=== PATIENT | male | born 1945 | race Caucasian/White ===

== ENCOUNTER 2017-10-05 05:56 | Inpatient (IN) | payer MEDICARE, OTHER ==
[2017-10-03 11:44] LABS: BASOPHILS # (AUTO) 0.1 X10'3 (0-0.2); BASOPHILS % (AUTO) 1.1 % (0-1); EOSINOPHILS # (AUTO) 0.3 X10'3 (0-0.9); EOSINOPHILS % (AUTO) 2.8 % (0-6); LYMPHOCYTES # (AUTO) 2.3 X10'3 (1.1-4.8); LYMPHOCYTES % (AUTO) 23.6 % (21-51); MEAN CORPUSCULAR HEMOGLOBIN 29.2 PG (27.0-31.0); MEAN CORPUSCULAR HGB CONC 33.5 % (33.0-36.5); MEAN CORPUSCULAR VOLUME 87.1 FL (78-98); MEAN PLATELET VOLUME 8.7 FL (7.4-10.4); MONOCYTES # (AUTO) 0.7 X10'3 (0-0.9); MONOCYTES % (AUTO) 7.1 % (2-12); NEUTROPHILS # (AUTO) 6.4 X10'3 (1.8-7.7); NEUTROPHILS % (AUTO) 65.4 % (42-75); PRE OP HEMATOCRIT 48.3 % (42.0-52.0); PRE OP HEMOGLOBIN 16.2 g/dL (14.0-17.9); PRE OP PLATELET COUNT 274 X10'3 (140-440); RED BLOOD COUNT 5.55 X10'6 (4.70-6.10); RED CELL DISTRIBUTION WIDTH 13.6 % (11.5-14.5)
[2017-10-03 11:47] LABS: ALBUMIN 3.6 G/DL (3.4-5.0); ALKALINE PHOSPHATASE 79 IU/L (46-116); BLOOD UREA NITROGEN 24 MG/DL (7-18); BUN/CREATININE RATIO 18.6 (5.4-32.0); CALCIUM 8.7 MG/DL (8.5-10.1); CHLORIDE 102 MMOL/L (99-107); CREATININE 1.29 MG/DL (0.60-1.10); PRE OP ALT 50 U/L (30-65); PRE OP ANION GAP 11 (8-16); PRE OP BILIRUB, TOTAL 0.5 MG/DL (0.0-1.0); PRE OP GLUCOSE 121 MG/DL (70-104); PRE OP SODIUM 142 MMOL/L (135-145); TOTAL CARBON DIOXIDE 29.1 MMOL/L (24-32); TOTAL PROTEIN 7.3 G/DL (6.4-8.2); eGFR 55 ML/MIN
[2017-10-03 11:49] LABS: PRE OP AST 28 U/L (10-37); PRE OP POTASSIUM 3.6 MMOL/L (3.4-5.1)
[2017-10-03 11:54] LABS: CLARITY,URINE Clear (Clear); COLOR,URINE Yellow (Yellow); GLUCOSE, URINE Negative (Neg); KETONES,URINE Negative (Neg); LEUKOCYTE ESTERASE ,URINE Negative (Neg); NITRITES, URINE Negative (Neg); OCCULT BLOOD,URINE Negative (Neg); PROTEIN,URINE Negative (Neg)
[2017-10-03 11:56] LABS: UA COLLECTION TYPE NON-SPECIFIED
[2017-10-05] VITALS (17 sets, daily range): BP systolic 108–163; BP diastolic 67–87
[~2017-10-05] VITALS: Ht 177.8 cm; Wt 97.6 kg
[~2017-10-05 05:56] MED LIST: AMLODIPINE PO; ASPI-611 PO; BENA40TA8 PO; DOCUMENT DATE & TIME OF BETA-BLOCKER PO ONE; HYDR-565 PO; HYDR25TA4 PO; METO-384 PO; OMEPRAZOLE PO; TAMS0.4C32 PO; famotidine 20mg tablet PO ONE
[2017-10-05] MEDS ORDERED: cefazolin/dext.iso 2gm/50ml 50 ML IV ONE (07:24)
[2017-10-05] MEDS: ringers solution, lacted 1,000 ML IV SCH ×3 (07:26→17:34)
[2017-10-05] MEDS ORDERED: sevoflurane 250ml liquid IH ONE (08:30)
[2017-10-05] MEDS ORDERED: fentaNYL/PF 50MCG/1 ML 2ML syringe ONE (08:36)
[2017-10-05] MEDS ORDERED: midazolam 2 mg/2 ml injection ONE (08:37)
[2017-10-05] MEDS ORDERED: propofol inj 20 ML IV ONE (08:37)
[2017-10-05] MEDS ORDERED: rocuronium 10mg/ml inj IV ONE (08:37)
[2017-10-05] MEDS ORDERED: ePHEDrine 50MG/ML INJ. ONE (09:07)
[2017-10-05] MEDS ORDERED: ringers solution, lacted 1,000 ML IV SCH (09:19)
[2017-10-05] MEDS ORDERED: meperidine/PF 50mg/ml syringe IV PRN ×2 (09:20)
[2017-10-05] MEDS ORDERED: proCHLORperazine 10 MG/2 ml inj IV PRN (09:20)
[2017-10-05] MEDS ORDERED: morphine 2 MG/ML inj. syringe IV PRN ×2 (09:20)
[2017-10-05] MEDS ORDERED: ondansetron/PF 4mg/2ml inj IV PRN ×2 (09:20→11:50)
[2017-10-05] MEDS ORDERED: neostigmine methylsulfate 1 MG/ML 10ml vial ONE (09:42)
[2017-10-05] MEDS ORDERED: glycopyrrolate 0.2mg/ml inj ONE (09:42)
[2017-10-05] MEDS: meperidine/PF 50mg/ml syringe IV PRN ×3 (10:43→17:34)
[2017-10-05] MEDS ORDERED: HYDROcodone/acetaminophen 10/325mg tab PO ONE (10:55)
[2017-10-05] MEDS ORDERED: HYDROcodone/acetaminophen 5mg/325mg tablet PO PRN (11:50)
[2017-10-05] MEDS ORDERED: HYDROcodone/acetaminophen 10/325mg tab PO PRN (11:50)
[2017-10-05] MEDS ORDERED: ceFAZolin inj. 1,000 MG in dextrose 5%-water 50ml 50 ML IV SCH (16:00)
[2017-10-05] MEDS ORDERED: morphine 4 MG/ML inj SYRINge IV PRN ×2 (18:50→20:35)
[2017-10-05] MEDS: enoxaparin 30mg/0.3ml syringe SQ SCH (20:16)
[2017-10-05] MEDS: potassium CL 20mEq in D5-1/2NS 1,000 ML IV SCH (20:41)
[2017-10-05] MEDS: cefazolin 1gm/NS 100mL 100 ML IV SCH (20:43)
[2017-10-05] MEDS: HYDROmorphone 2mg tablet PO PRN (21:08)
[2017-10-06] VITALS: BP 166/87
[2017-10-06] MEDS: potassium CL 20mEq in D5-1/2NS 1,000 ML IV SCH (00:20)
[2017-10-06] MEDS: cefazolin 1gm/NS 100mL 100 ML IV SCH (01:23)
[2017-10-06] MEDS: HYDROmorphone 2mg tablet PO PRN ×2 (01:23→19:56)
[2017-10-06] MEDS ORDERED: mag hydrox/Alum hydrox/simeth 30ml oral suspension PO PRN (02:35)
[2017-10-06] MEDS: temazepam 15mg capsule PO PRN (02:47)
[2017-10-06] MEDS: guaiFENesin/DM oral syrup 5 ML CUP PO PRN ×2 (02:47→02:55)
[2017-10-06] MEDS ORDERED: HYDROmorphone 2mg tablet PO PRN (05:40)
[2017-10-06 08:00] VITALS: BP 137/78
[2017-10-06] MEDS ORDERED: HYDROcodone/acetaminophen 10/325mg tab PO SCH (08:00)
[2017-10-06] MEDS: enoxaparin 30mg/0.3ml syringe SQ SCH ×2 (09:32→19:57)
[2017-10-06] MEDS: pantoprazole 40mg Tablet.DR PO SCH (09:32)
[2017-10-06] MEDS: aspirin 81mg tab.chew PO SCH (09:32)
[2017-10-06] MEDS: amLODIPine 5mg tablet PO SCH (09:32)
[2017-10-06] MEDS: HYDROchlorothiazide 25mg tablet PO SCH (09:32)
[2017-10-06] MEDS: lisinopril 20mg tablet PO SCH (09:33)
[2017-10-06] MEDS: tamsulosin 0.4mg capsule PO SCH (09:33)
[2017-10-06] MEDS: metoprolol succinate 25mg (24-HOUR) SR. Tablet PO SCH (09:34)
[2017-10-06] MEDS ORDERED: albuterol 2.5 MG/3 ML nebule NEB PRN (10:45)
[2017-10-06 11:00] VITALS: BP 187/86
[2017-10-06 13:56] VITALS: BP 131/77
[2017-10-06] MEDS ORDERED: cefazolin 1gm/NS 100mL 100 ML IV SCH (16:00)
[2017-10-06 20:00] VITALS: BP 113/61
[2017-10-06] MEDS ORDERED: azithromycin/NS 500mg/250ml 250 ML IV SCH (20:00)
[2017-10-06] MEDS ORDERED: levoFLOXACIN-Levaquin 500mg/D5 100 ML IV SCH (20:00)
[2017-10-06] MEDS: metroNIDAZOLE-Flagyl 500mg/NS 100 ML IV SCH (23:25)
[2017-10-07] VITALS: BP 118/61
[2017-10-07] MEDS ORDERED: metroNIDAZOLE 500mg tablet PO SCH
[2017-10-07] MEDS: temazepam 15mg capsule PO PRN ×2 (00:19→21:31)
[2017-10-07] MEDS: HYDROmorphone 2mg tablet PO PRN ×4 (00:19→23:57)
[2017-10-07] MEDS: ipratropium/albuterol 3ml nebule NEB SCH ×4 (00:54→23:06)
[2017-10-07 08:00] VITALS: BP 122/63
[2017-10-07] MEDS: metroNIDAZOLE-Flagyl 500mg/NS 100 ML IV SCH ×3 (08:28→23:52)
[2017-10-07] MEDS: pantoprazole 40mg Tablet.DR PO SCH (08:28)
[2017-10-07] MEDS: enoxaparin 30mg/0.3ml syringe SQ SCH ×2 (08:29→21:24)
[2017-10-07] MEDS: amLODIPine 5mg tablet PO SCH (08:29)
[2017-10-07] MEDS: tamsulosin 0.4mg capsule PO SCH (08:29)
[2017-10-07] MEDS: lisinopril 20mg tablet PO SCH (08:29)
[2017-10-07] MEDS: HYDROchlorothiazide 25mg tablet PO SCH (08:29)
[2017-10-07] MEDS: metoprolol succinate 25mg (24-HOUR) SR. Tablet PO SCH (08:29)
[2017-10-07] MEDS: aspirin 81mg tab.chew PO SCH (08:29)
[2017-10-07 11:14] VITALS: BP 106/52
[2017-10-07] MEDS ORDERED: hydrALAZINE 20mg/ml inj. IV PRN (14:10)
[2017-10-07 15:32] LABS: BASOPHILS % (AUTO) 0.1 % (0-1); EOSINOPHILS # (AUTO) 0.1 X10'3 (0-0.9); EOSINOPHILS % (AUTO) 0.9 % (0-6); HEMATOCRIT 36.2 % (42.0-52.0); HEMOGLOBIN 12.4 g/dl (14.0-17.9); LYMPHOCYTES % (AUTO) 15.7 % (21-51); MEAN CORPUSCULAR HEMOGLOBIN 29.4 PG (27.0-31.0); MEAN CORPUSCULAR HGB CONC 34.1 % (33.0-36.5); MEAN CORPUSCULAR VOLUME 86.1 FL (78-98); MEAN PLATELET VOLUME 8.8 FL (7.4-10.4); MONOCYTES # (AUTO) 1.1 X10'3 (0-0.9); MONOCYTES % (AUTO) 8.1 % (2-12); NEUTROPHILS # (AUTO) 9.8 X10'3 (1.8-7.7); NEUTROPHILS % (AUTO) 75.2 % (42-75); PLATELET COUNT 174 X10'3 (140-440); RED CELL DISTRIBUTION WIDTH 14.1 % (11.5-14.5)
[2017-10-07 15:52] LABS: ALBUMIN 2.4 G/DL (3.4-5.0); ANION GAP 6 (8-16); BLOOD UREA NITROGEN 29 MG/DL (7-18); BUN/CREATININE RATIO 23.4 (5.4-32.0); CALCIUM 8.1 MG/DL (8.5-10.1); CHLORIDE 103 MMOL/L (99-107); CREATININE 1.24 MG/DL (0.60-1.10); GLUCOSE 116 MG/DL (70-104); POTASSIUM 3.3 MMOL/L (3.5-5.1); SODIUM 143 MMOL/L (135-145); TOTAL CARBON DIOXIDE 34.2 MMOL/L (24-32); eGFR 57 ML/MIN
[2017-10-07] MEDS: lactobacillus rhamnosus 10,000 MMU CELLS/CAPSULE PO SCH (16:37)
[2017-10-07 18:00] VITALS: BP 132/63
[2017-10-07] MEDS: clindamycin phosphate inj 300 MG in dextrose 5%-water 50ml 48 ML IV SCH (21:23)
[2017-10-07] MEDS: guaiFENesin/DM oral syrup 5 ML CUP PO PRN (21:31)
[2017-10-08] VITALS: BP 121/66
[2017-10-08] MEDS: clindamycin phosphate inj 300 MG in dextrose 5%-water 50ml 48 ML IV SCH ×4 (02:59→20:22)
[2017-10-08 03:38] LABS: BASOPHILS % (AUTO) 0.3 % (0-1); EOSINOPHILS # (AUTO) 0.4 X10'3 (0-0.9); EOSINOPHILS % (AUTO) 3.4 % (0-6); HEMATOCRIT 36.4 % (42.0-52.0); HEMOGLOBIN 12.4 g/dl (14.0-17.9); LYMPHOCYTES # (AUTO) 2.2 X10'3 (1.1-4.8); LYMPHOCYTES % (AUTO) 19.4 % (21-51); MEAN CORPUSCULAR HEMOGLOBIN 29.6 PG (27.0-31.0); MEAN CORPUSCULAR VOLUME 87.3 FL (78-98); MEAN PLATELET VOLUME 9.1 FL (7.4-10.4); MONOCYTES # (AUTO) 1.1 X10'3 (0-0.9); MONOCYTES % (AUTO) 9.6 % (2-12); NEUTROPHILS # (AUTO) 7.7 X10'3 (1.8-7.7); NEUTROPHILS % (AUTO) 67.3 % (42-75); PLATELET COUNT 165 X10'3 (140-440); RED BLOOD COUNT 4.17 X10'6 (4.70-6.10); RED CELL DISTRIBUTION WIDTH 13.8 % (11.5-14.5); WHITE BLOOD COUNT 11.4 X10'3 (4.5-11.0)
[2017-10-08 03:59] LABS: ALBUMIN 2.4 G/DL (3.4-5.0); ANION GAP 6 (8-16); BLOOD UREA NITROGEN 24 MG/DL (7-18); BUN/CREATININE RATIO 19.4 (5.4-32.0); CALCIUM 8.2 MG/DL (8.5-10.1); CHLORIDE 104 MMOL/L (99-107); CREATININE 1.24 MG/DL (0.60-1.10); GLUCOSE 116 MG/DL (70-104); SODIUM 143 MMOL/L (135-145); TOTAL CARBON DIOXIDE 33.3 MMOL/L (24-32); eGFR 57 ML/MIN
[2017-10-08 04:02] LABS: POTASSIUM 2.8 MMOL/L (3.5-5.1)
[2017-10-08] MEDS ORDERED: magnesium 4gm in 100ml NS 100 ML IV PRN (04:40)
[2017-10-08] MEDS ORDERED: potassium Cl 40MEQ/NS 500ml 500 ML IV PRN ×2 (04:40)
[2017-10-08] MEDS ORDERED: magnesium 2GM in 50ml NS 50 ML IV PRN (04:40)
[2017-10-08] MEDS ORDERED: magnesium Cl slow-release 64mg tablet PO PRN (04:40)
[2017-10-08] MEDS: potassium Cl 20 mEq SR tablet PO PRN ×3 (04:54→13:20)
[2017-10-08] MEDS: HYDROmorphone 2mg tablet PO PRN (04:54)
[2017-10-08] MEDS: ipratropium/albuterol 3ml nebule NEB SCH ×2 (07:15→23:41)
[2017-10-08 07:48] VITALS: BP 144/79
[2017-10-08] MEDS: pantoprazole 40mg Tablet.DR PO SCH (08:09)
[2017-10-08] MEDS: amLODIPine 5mg tablet PO SCH (08:09)
[2017-10-08] MEDS: aspirin 81mg tab.chew PO SCH (08:09)
[2017-10-08] MEDS: tamsulosin 0.4mg capsule PO SCH (08:10)
[2017-10-08] MEDS: lactobacillus rhamnosus 10,000 MMU CELLS/CAPSULE PO SCH ×2 (08:10→16:52)
[2017-10-08] MEDS: metroNIDAZOLE-Flagyl 500mg/NS 100 ML IV SCH ×2 (08:10→16:52)
[2017-10-08] MEDS: HYDROchlorothiazide 25mg tablet PO SCH (08:10)
[2017-10-08] MEDS: enoxaparin 30mg/0.3ml syringe SQ SCH ×2 (08:11→20:22)
[2017-10-08] MEDS ORDERED: methylPREDNISolone sod succ/PF 40mg inj. IV ONE (09:10)
[2017-10-08] MEDS ORDERED: furosemide 40mg/4ml inj IV ONE (09:15)
[2017-10-08 11:15] VITALS: BP 136/61
[2017-10-08] MEDS: hyDRALAzine 10mg tablet PO SCH (16:52)
[2017-10-08 18:00] VITALS: BP 123/68
[2017-10-08] MEDS: docusate sod 100mg capsule PO SCH (20:20)
[2017-10-08 23:00] VITALS: BP 139/65
[2017-10-09] MEDS: hyDRALAzine 10mg tablet PO SCH ×3 (00:12→15:08)
[2017-10-09] MEDS: metroNIDAZOLE-Flagyl 500mg/NS 100 ML IV SCH ×3 (00:13→15:08)
[2017-10-09] MEDS: clindamycin phosphate inj 300 MG in dextrose 5%-water 50ml 48 ML IV SCH ×4 (02:05→19:25)
[2017-10-09 05:18] LABS: MAGNESIUM 2.1 MG/DL (1.5-2.4); POTASSIUM 3.3 MMOL/L (3.5-5.1)
[2017-10-09 07:23] VITALS: BP 148/70
[2017-10-09] MEDS: lactobacillus rhamnosus 10,000 MMU CELLS/CAPSULE PO SCH ×2 (07:31→15:40)
[2017-10-09] MEDS: potassium Cl 20 mEq SR tablet PO PRN ×2 (07:31→14:09)
[2017-10-09] MEDS: amLODIPine 5mg tablet PO SCH (07:31)
[2017-10-09] MEDS: docusate sod 100mg capsule PO SCH ×2 (07:31→19:24)
[2017-10-09] MEDS: aspirin 81mg tab.chew PO SCH (07:31)
[2017-10-09] MEDS: pantoprazole 40mg Tablet.DR PO SCH (07:31)
[2017-10-09] MEDS: enoxaparin 30mg/0.3ml syringe SQ SCH ×2 (07:32→19:25)
[2017-10-09] MEDS: tamsulosin 0.4mg capsule PO SCH (07:32)
[2017-10-09] MEDS: ipratropium/albuterol 3ml nebule NEB SCH ×2 (07:41→15:43)
[2017-10-09 11:56] VITALS: BP 151/72
[2017-10-09 16:00] VITALS: BP 144/79
[2017-10-09 23:51] VITALS: BP 151/78
[2017-10-10] MEDS: metroNIDAZOLE-Flagyl 500mg/NS 100 ML IV SCH (00:25)
[2017-10-10] MEDS: hyDRALAzine 10mg tablet PO SCH ×3 (00:25→15:00)
[2017-10-10] MEDS: potassium Cl 20 mEq SR tablet PO PRN ×3 (00:25→14:58)
[2017-10-10] MEDS: ipratropium/albuterol 3ml nebule NEB SCH ×3 (02:07→16:00)
[2017-10-10] MEDS: clindamycin phosphate inj 300 MG in dextrose 5%-water 50ml 48 ML IV SCH (02:17)
[2017-10-10 05:44] LABS: BASOPHILS % (AUTO) 0.4 % (0-1); EOSINOPHILS # (AUTO) 0.6 X10'3 (0-0.9); EOSINOPHILS % (AUTO) 5.3 % (0-6); HEMATOCRIT 39.4 % (42.0-52.0); HEMOGLOBIN 13.7 g/dl (14.0-17.9); LYMPHOCYTES # (AUTO) 2.6 X10'3 (1.1-4.8); LYMPHOCYTES % (AUTO) 22.5 % (21-51); MEAN CORPUSCULAR HEMOGLOBIN 29.8 PG (27.0-31.0); MEAN CORPUSCULAR HGB CONC 34.7 % (33.0-36.5); MEAN CORPUSCULAR VOLUME 85.8 FL (78-98); MEAN PLATELET VOLUME 8.2 FL (7.4-10.4); MONOCYTES # (AUTO) 1.2 X10'3 (0-0.9); MONOCYTES % (AUTO) 10.5 % (2-12); NEUTROPHILS % (AUTO) 61.3 % (42-75); PLATELET COUNT 231 X10'3 (140-440); RED CELL DISTRIBUTION WIDTH 13.4 % (11.5-14.5); WHITE BLOOD COUNT 11.4 X10'3 (4.5-11.0)
[2017-10-10 06:25] LABS: ALANINE AMINOTRANSFERASE 40 U/L (12-78); ALBUMIN 2.8 G/DL (3.4-5.0); ALBUMIN/GLOBULIN RATIO 0.8 (1.1-1.5); ALKALINE PHOSPHATASE 59 IU/L (46-116); ANION GAP 8 (8-16); ASPARTATE AMINO TRANSFERASE 40 U/L (10-37); BILIRUBIN,TOTAL 0.5 MG/DL (0.1-1.0); BLOOD UREA NITROGEN 17 MG/DL (7-18); BUN/CREATININE RATIO 13.9 (5.4-32.0); CALCIUM 8.4 MG/DL (8.5-10.1); CHLORIDE 105 MMOL/L (99-107); CREATININE 1.22 MG/DL (0.60-1.10); GLUCOSE 122 MG/DL (70-104); POTASSIUM 3.3 MMOL/L (3.5-5.1); SODIUM 144 MMOL/L (135-145); TOTAL CARBON DIOXIDE 30.7 MMOL/L (24-32); TOTAL PROTEIN 6.1 G/DL (6.4-8.2); eGFR 58 ML/MIN
[2017-10-10 07:44] VITALS: BP 156/85
[2017-10-10] MEDS ORDERED: apixaban 5mg tablet PO SCH (08:33)
[2017-10-10] MEDS: lactobacillus rhamnosus 10,000 MMU CELLS/CAPSULE PO SCH ×2 (09:11→17:27)
[2017-10-10] MEDS: amox tr/potassium clavulanate 875/125mg TAB PO SCH ×2 (09:11→17:27)
[2017-10-10] MEDS: docusate sod 100mg capsule PO SCH (09:11)
[2017-10-10] MEDS: tamsulosin 0.4mg capsule PO SCH (09:11)
[2017-10-10] MEDS: aspirin 81mg tab.chew PO SCH (09:11)
[2017-10-10] MEDS: amLODIPine 5mg tablet PO SCH (09:11)
[2017-10-10] MEDS: pantoprazole 40mg Tablet.DR PO SCH (09:11)
[2017-10-10 11:37] VITALS: BP 140/90
[2017-10-10] MEDS ORDERED: AMOX-580 PO (17:12)
== END 2017-10-10 18:55 | disposition home or self-care (01) | DRG 988 ==
LOC: PAS 05:56 → INTOOBSV 11:50 → SUR 3N 11:50 → OBSVTOIN 10-06 09:30
PROVIDERS: ADMIT Surgery; ATTEND Surgery
PROC: 0FT44ZZ Resection of Gallbladder, Percutaneous Endoscopic Approach (ICD-10-PCS; principal; 2017-10-05 08:37)
DX: J95.4 Chemical pneumonitis due to anesthesia (principal); K80.00 Calculus of gallbladder with acute cholecystitis without obstruction; D64.9 Anemia, unspecified; R73.03 Prediabetes; K21.9 Gastro-esophageal reflux disease without esophagitis; I12.9 Hypertensive chronic kidney disease with stage 1 through stage 4 chronic kidney disease, or unspecified chronic kidney disease; N18.9 Chronic kidney disease, unspecified; R59.9 Enlarged lymph nodes, unspecified; N40.0 Benign prostatic hyperplasia without lower urinary tract symptoms; Y83.8 Other surgical procedures as the cause of abnormal reaction of the patient, or of later complication, without mention of misadventure at the time of the procedure; Z79.4 Long term (current) use of insulin; Z87.11 Personal history of peptic ulcer disease; Z87.891 Personal history of nicotine dependence; Z82.49 Family history of ischemic heart disease and other diseases of the circulatory system
CPT/HCPCS: 36415; 71046; 71250; 80048; 80053; 81003; 83735; 84132; 85025; 87040; 87070; 88304; 94640; 94760; A6213; A6251; A6258; A6449; A7000; G0378; J0456; J0690; J1650; J1940; J1956; J2175; J2250; J2270; J2405; J2704; J2710; J2920; J3010; J3490; J7030; J7060; J7120

== ENCOUNTER 2021-06-08 11:47 | Emergency (ER) | payer MEDICARE, OTHER ==
[~2021-06-08] VITALS: Ht 177.8 cm; Wt 90.9 kg
[~2021-06-08 11:47] MED LIST changes: +AMLO10TA13 PO; -AMLODIPINE PO; +ASPI-1071 PO; -ASPI-611 PO; +ATOR20TA66 PO; -BENA40TA8 PO; +BENA40TA90 PO; +CLOP75TA34 PO; -DOCUMENT DATE & TIME OF BETA-BLOCKER PO ONE; +FEXO-61 PO; -HYDR-565 PO; -METO-384 PO; +OMEP40CA21 PO; -OMEPRAZOLE PO; -famotidine 20mg tablet PO ONE
[2021-06-08 12:00] VITALS: BP 106/59
[2021-06-08] MEDS ORDERED: BAMLANIVIMAB 700mg/20ml inj. 700 MG, ETESEVIMAB 700mg/20mL inj. 1,400 MG in normal sali... IV ONE (12:15)
[2021-06-08] MEDS ORDERED: dexamethasone sod phosphate 10mg/ml inj IV STA (12:22)
[2021-06-08] MEDS ORDERED: ALBU6.7H9 INH (13:21)
== END 2021-06-08 16:32 | disposition home or self-care (01) ==
LOC: ER 11:48
DX: U07.1 COVID-19 (principal); R50.9 Fever, unspecified; I10 Essential (primary) hypertension; Z86.73 Personal history of transient ischemic attack (TIA), and cerebral infarction without residual deficits; Z98.890 Other specified postprocedural states; Z79.82 Long term (current) use of aspirin; Z79.899 Other long term (current) drug therapy
CPT/HCPCS: 71045; 96374; 99284; J1100; M0245; Q0245; Q0239

== ENCOUNTER 2023-12-10 10:10 | Emergency (ER) | payer MEDICARE, OTHER ==
[~2023-12-10] VITALS: Ht 177.8 cm; Wt 89.0 kg
[~2023-12-10 10:10] MED LIST changes: +ALBU6.7H14 INH; +FEXO-353 PO; -FEXO-61 PO
[2023-12-10 10:27] VITALS: TEMP 98.4
[2023-12-10 10:47] LABS: BASOPHILS # (AUTO) 0.1 X10'3 (0-0.2); BASOPHILS % (AUTO) 0.6 % (0-1); EOSINOPHILS # (AUTO) 0.3 X10'3 (0-0.9); EOSINOPHILS % (AUTO) 2.6 % (0-6); HEMATOCRIT 45.7 % (42.0-52.0); HEMOGLOBIN 15.4 g/dl (14.0-17.9); LYMPHOCYTES # (AUTO) 2.2 X10'3 (1.1-4.8); LYMPHOCYTES % (AUTO) 21.7 % (21-51); MEAN CORPUSCULAR HEMOGLOBIN 30.7 PG (27.0-31.0); MEAN CORPUSCULAR HGB CONC 33.7 g/dL (33.0-36.5); MEAN PLATELET VOLUME 8.8 FL (7.4-10.4); MONOCYTES # (AUTO) 1.2 X10'3 (0-0.9); MONOCYTES % (AUTO) 11.4 % (2-12); NEUTROPHILS # (AUTO) 6.6 X10'3 (1.8-7.7); NEUTROPHILS % (AUTO) 63.7 % (42-75); PLATELET COUNT 259 X10'3 (140-440); RED BLOOD COUNT 5.03 X10'6 (4.70-6.10); RED CELL DISTRIBUTION WIDTH 13.5 % (11.5-14.5); WHITE BLOOD COUNT 10.4 X10'3 (4.5-11.0)
[2023-12-10 10:55] LABS: ALANINE AMINOTRANSFERASE 13 U/L (12-78); ALBUMIN 3.6 G/DL (3.4-5.0); ALBUMIN/GLOBULIN RATIO 1.1 (1.1-1.5); ALKALINE PHOSPHATASE 69 IU/L (46-116); ANION GAP 11 (8-16); ASPARTATE AMINO TRANSFERASE 33 U/L (10-37); BILIRUBIN,TOTAL 0.7 MG/DL (0.1-1.0); BLOOD UREA NITROGEN 24 MG/DL (7-18); CALCIUM 8.6 MG/DL (8.5-10.1); CHLORIDE 105 MMOL/L (99-107); GLUCOSE 133 MG/DL (70-104); POTASSIUM 3.5 MMOL/L (3.5-5.1); SODIUM 143 MMOL/L (135-145); eCRCL 52 ML/MIN; eGFR 58 ML/MIN
[2023-12-10 11:02] LABS: PRO BRAIN NATRIURETIC PEPTIDE 233 PG/ML (0-450)
[2023-12-10 12:54] VITALS: BP 138/62; PULSE 48; RESP 15; O2SAT 99
== END 2023-12-10 13:59 | disposition home or self-care (01) ==
LOC: ER 10:10
DX: R07.89 Other chest pain (principal); I10 Essential (primary) hypertension; Z86.73 Personal history of transient ischemic attack (TIA), and cerebral infarction without residual deficits
CPT/HCPCS: 36415; 71045; 80053; 83880; 84484; 85025; 93005; 99285